=== PATIENT | male | born 1990 | race African-American/Black ===

== ENCOUNTER 2018-03-23 20:12 | Emergency (ER) | payer SELFPAY ==
[~2018-03-23] VITALS: Ht 177.8 cm; Wt 107.0 kg
[~2018-03-23 20:12] MED LIST: BACT800T5 PO; CEPH500T PO
[2018-03-23 20:20] VITALS: BP 128/76; PULSE 82; RESP 16; TEMP 98.4; O2SAT 99
[2018-03-23] MEDS ORDERED: IBUP1TAB7 PO (20:40)
--- NOTE | 2018-03-23 20:41 | PD ---
HPI Chief Complaint: Injury Time Seen by Provider: 20:35 Travel History International Travel<30 days: No Contact w/Intl Traveler<30days: No Traveled to known affect area: No History of Present Illness HPI 27-year-old male presents to the emergency department for evaluation of right hand and right knee injury. Patient states that his right knee has been hurting him for approximately a month. He states that during football, somebody hit him on the side of the knee. He states he felt like his patella dislocated and reduced itself. He states he still having pain with ambulation since then. Patient states that if he moves his knee a certain way and will worsen the pain. Pain is relieved with keeping the knee still. Patient also reports right hand injury that occurred on Tuesday, 5 days ago. He states it got smashed and he has pain over the second MCP joint. Exacerbating factors movement of the right second finger. No alleviating factor. Mild severity. 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 SKIN: Focused skin assessment warm/dry. HEAD: Normocephalic. Atraumatic. EYES: No scleral icterus. No injection or drainage. NECK: Supple, trachea midline. No JVD or lymphadenopathy. CARDIOVASCULAR: Regular rate and rhythm without murmurs, gallops, or rubs. Right radial right pedal pulse are 2+. RESPIRATORY: Breath sounds equal bilaterally. No accessory muscle use. Lung sounds are clear to auscultation. GASTROINTESTINAL: Abdomen soft, non-tender, nondistended. MUSCULOSKELETAL: No cyanosis, or edema. Patient has tenderness over right medial knee. He also has tenderness over the right second MCP joint. He has reduced range of motion of the right second finger due to pain. BACK: Nontender without obvious deformity. No CVA tenderness. Data Data Last Documented VS Vital Signs Date Time Temp Pulse Resp B/P (MAP) Pulse Ox O2 Delivery O2 Flow Rate FiO2 03/23/18 20:20 98.4 82 16 128/76 (93) 99 Orders Orders Knee, Complete (4vws) (03/23/18 ) Hand, Complete ([id number]) (03/23/18 ) Ed Discharge Order (03/23/18 21:36) MDM Medical Decision Making Medical Screen Exam Complete: Yes Emergency Medical Condition: Yes Medical Record Reviewed: Yes Differential Diagnosis Contusion versus fracture versus dislocation versus sprain Narrative Course 27-year-old male presents to the emergency department for evaluation right knee pain for 1 month and right second finger pain for 5 days. X-ray of the right knee and right hand are ordered and pending. X-ray of the right knee is negative. X-ray of the right hand is negative. Diagnosis Primary Impression: Contusion of right hand Qualified Codes: S60.221A - Contusion of right hand, initial encounter Additional Impression: Right knee sprain Qualified Codes: S83.91XA - Sprain of unspecified site of right knee, initial encounter Referrals: Orthopedist call for appointment Patient Instructions: Contusion in Adults (ED), General Instructions, Knee Sprain (ED) Additional Instructions: Take ibuprofen as directed as needed with food for pain. Ice for 20 minutes 4-5 times daily. Follow-up with an orthopedist. Return to the emergency department for any acute worsening of symptoms Med/Other Pt SpecificInfo: Prescription(s) given Scripts Ibuprofen (Ibuprofen) 800 Mg Tab 800 MG PO TID Y for PAIN SCALE 1 TO 10, #21 TAB 0 Refills Prov: Noah Stevensrossy ARZATE 03/23/18 Disposition: 01 DISCHARGE HOME Condition: Stable Rodney,Pallavi ARZATE March 23, 2018 20:41
--- NOTE | 2018-03-23 21:28 | RADRPT ---
EXAM DATE: 03/23/2018 9:23 PM EDT AGE/SEX: 27 years / Male INDICATIONS: Right hand, thumb and index finger, pain. Fell and bent finger back. CLINICAL DATA: This is the patient's initial encounter. Patient reports that signs and symptoms have been present for 2 days and indicates a pain score of 2/10. MEDICAL/SURGICAL HISTORY: None. None. COMPARISON: No prior [facility] exams available for comparison. FINDINGS: Bony structures are intact and in normal alignment. Osseous density is normal. Soft tissues are unre markable. No radiopaque foreign bodies seen. CONCLUSION: Negative trauma study with no evidence of fracture or malalignment. Electronically signed by: Patrick Calhoun MD 03/23/2018 9:27 PM EDT
--- NOTE | 2018-03-23 21:28 | RADRPT ---
EXAM DATE: 03/23/2018 9:25 PM EDT AGE/SEX: 27 years / Male INDICATIONS: Right medial knee pain, fell CLINICAL DATA: This is the patient's initial encounter. Patient reports that signs and symptoms have been present for 2 weeks and indicates a pain score of 6/10. MEDICAL/SURGICAL HISTORY: None. None. COMPARISON: No prior [facility] exams available for comparison. FINDINGS: Bony structures are intact and in normal alignment. Joints are intact without dislocation or signifi cant arthropathy. Osseous density is normal. Soft tissues are unremarkable. No radiopaque foreign bodies seen. CONCLUSION: Negative trauma study. Electronically signed by: Patrick Calhoun MD 03/23/2018 9:27 PM EDT
== END 2018-03-23 21:40 | disposition home or self-care (01) ==
LOC: NEPK 20:12
DX: S60.221A Contusion of right hand, initial encounter (principal); S83.91XA Sprain of unspecified site of right knee, initial encounter; W22.8XXA Striking against or struck by other objects, initial encounter; W50.0XXA Accidental hit or strike by another person, initial encounter; Y93.61 Activity, american tackle football
CPT/HCPCS: 73130; 73564; 99284